=== PATIENT | female | born 1965 | race Caucasian/White ===

== ENCOUNTER 2025-07-09 15:12 | Emergency (ER) | payer MEDICARE, SELFPAY ==
[2025-07-09 15:26] VITALS: BP 138/83; PULSE 95; RESP 16; TEMP 36.5; O2SAT 100
--- NOTE | 2025-07-09 15:45 | ED_ITS ---
HPI - Wound/Laceration General Chief Complaint: Wound/Laceration Stated Complaint: Multiple complaints Time Seen by Provider: 07/09/25 15:34 Source: patient and RN notes reviewed Mode of arrival: ambulatory Limitations: no limitations History of Present Illness HPI narrative: 60-year-old female patient presents today complaining of a wound to the medial right upper arm x5 days. She believes she may have been bitten by a brown recluse. She has been cleaning the area with betadine and applying bacitracin. Reports discomfort only with touching the area. Related Data Home Medications ?Medication ?Instructions ?Recorded ?Confirmed ?Last Taken ?Type alprazolam 2 mg tablet mg 07/09/25 Unknown History methadone 07/09/25 Unknown History sertraline 100 mg tablet mg 07/09/25 Unknown History Allergies Allergy/AdvReac Type Severity Reaction Status Date / Time ketorolac Allergy Intermediate Unknown Verified 07/09/25 15:33 codeine Allergy Unknown hurts Verified 07/09/25 15:33 stomach PMFSH Family History Family History Father Family history of diabetes mellitus in first degree relative Social History Social History Alcohol intake: never Comments At time of signature, I have reviewed and agree with nursing past medical, surgical, social and family history unless otherwise noted. Please see nursing chart for further information. There is no relevant family history pertinent to the presenting complaint Exam Narrative: GENERAL: Well-appearing, well-nourished, and in no acute distress. HEAD: Normocephalic, atraumatic. EYES: EOMI. No redness or drainage. Conjunctivae normal. ENT: Mucous membranes pink and moist. NECK: Normal AROM. CHEST: No respiratory distress. Clear to auscultation. HEART: Regular rate and rhythm. No murmur appreciated. EXTREMITIES: Normal range of motion. No edema. SKIN: Warm, dry. Capillary refill normal. Normal skin turgor. 1x1cm scab to the left medial upper arm with some tiny papules to the proximal edge. Mildly tender palpation. No edema, fluctuance, induration noted. NEURO: No focal deficits. Alert and oriented x3. Gait steady. PSYCH: Normal affect. No signs of depression or anxiety. Course Course Level of Care: Express Care Visit Vital Signs Vital signs: Vital Signs Temperature 97.7 F 07/09/25 15:26 Pulse Rate 95 07/09/25 15:26 Respiratory Rate 16 07/09/25 15:26 Blood Pressure 138/83 07/09/25 15:26 Pulse Oximetry 100 07/09/25 15:26 Oxygen Delivery Room Air 07/09/25 15:26 Temperature 97.7 F 07/09/25 15:26 Pulse Rate 95 07/09/25 15:26 Respiratory Rate 16 07/09/25 15:26 Blood Pressure 138/83 07/09/25 15:26 Pulse Oximetry 100 07/09/25 15:26 Oxygen Delivery Room Air 07/09/25 15:26 Reviewed MDM MDM Narrative Medical decision making narrative: 60-year-old female patient presents today complaining of a wound to the medial right upper arm x5 days. She believes she may have been bitten by a brown recluse. She has been cleaning the area with betadine and applying bacitracin. Reports discomfort only with touching the area. Upon exam,1x1cm scab to the left medial upper arm with some tiny papules to the proximal edge. Mildly tender palpation. No edema, fluctuance, induration noted. Scab seems to be healing fine, but etiology unclear. The tiny papules could be due to the bacitracin or Betadine, or also the Band-Aid that she was applying. Instructed patient that since the area scabbed over she no longer needs to cover. She can also stop applying the bacitracin and Betadine. This may help resolve the papules. This area does not seem infected and will likely heal up on its own. Patient requesting antibiotics and became very angry and agitated when she was told she would not be receiving a prescription. She left without signing her discharge iinstructions. Differential Diagnosis Differential Diagnosis: abscess, cellulitis, folliculits Critical Care Time Critical Care Time Critical Care Time: No Discharge Plan Discharge Clinical Impression: Wound of left upper extremity Patient Disposition: Home Condition: Stable Additional Instructions: Your arm wound should heal up on its own. At this time it does not appear infected in you do not need antibiotics. Follow-up with PCP for any additional concerns. Please call the physician liaison number at [facility] to find a PCP at [phone]. Patient Language: Uzbek Prescriptions: No Action sertraline 100 mg tablet alprazolam 2 mg tablet methadone Follow-up/Referrals: PHYSICIAN,PRETZEL TWISTING MACHINE OPERATOR [Primary Care Provider, Internal Medicine] Time of Disposition: 15:45
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
--- OUTSIDE RECORDS SUMMARY | 2025-07-09 17:48 | XMS_ITS | Clinical Summary ---
Author Organization [facility] Address [facility] [place] [address] Care Team Providers Care Civil Celebrant Name Role Phone Unavailable Primary Care Provider Unavailabl e Social History Tobacco Use Types Packs/Day Years Used Date Smoking Tobacco: Never Assessed Comments Unknown Sex and Gender Information Value Date Recorded Sex Assigned at Not on file Legal Sex Female 7:44 PM CDT Gender Identity Not on file Sexual Orientation Not on file Plan of Treatment Health Maintenance Due Date Last Done Comments Cervical Cancer Screening Pa p Smear (Age 30 to 64) Every 3 Years 1965 Colorectal Cancer Screening Colonoscopy (10 Years) 1965 Annual Physical 1968 Hepatitis C 1983 Cervical Cancer Screening Pa p with HPV Testing (Age 30 to 64) Every 5 Years 1995 Cervical Cancer Screening with HPV 1995 Mammogram Screening 2005 Pneumococcal Vaccine: 50+ Ye ars (1 of 1 - PCV) 2015 Zoster Vaccines (1 of 2) 2015 DTaP, Tdap and Td Vaccines ( 2 - Td or Tdap) 03/23/2020 03/23/2010 COVID-19 Vaccine ( - 2024-2 6 season) 2025 Influenza Adult (#1) 2025 RSV Immunization or 60+ Years (1 - 1-dose 75+ series) 2040 Hepatitis A Vaccines Aged Out No long er eligible based on patient's age to complete this topic Meningococcal B Vaccine Aged Out No l onger eligible based on patient's age to complete this topic Meningococcal Vaccine Aged Out No patti marry eligible based on patient's age to complete this topic RSV Immunizations Under 20 Months Aged Out No longer eligible based on patient's age to complete this topic
--- OUTSIDE RECORDS SUMMARY | 2025-07-09 17:48 | XMS_ITS | Clinical Summary ---
Author Organization [facility] Address [address] [place] [address] Care Team Providers Care Hvac Maintenance Technician Name Role Phone Unavailable Primary Care Provider Unavailabl e Medications ALPRAZolam (XANAX) 2 mg tablet TAKE ONE TABLET BY MOUTH FOUR TIMES A DAY NEEDED 120 Tablet 1 02/28/2024 9:42 AM CDT 01/30/2024 Active sertraline (ZOLOFT) 100 mg tablet TAKE ONE TABLET BY MOUTH EVERY DAY 90 Tablet 2 11/07/2024 12:46 PM CDT 11/06/2024 Active ALPRAZolam (XANAX) 2 mg tablet Take 1 Tablet (2 mg) by mouth 4 times daily as needed. 120 Tablet 1 11/07/2024 12:46 PM CDT 11/06/2024 Active Encounters Date Type Department Care Team Description 07/01/2025 External Device Data [facility] Provider, Abstract 06/10/2025 External Device Data [facility] Provider, Abstract 05/21/2025 External Device Data [facility] Provider, Abstract 05/21/2025 External Device Data [facility] Provider, Abstract from Last 3 Months Social History Tobacco Use Types Packs/Day Years Used Date Smoking Tobacco: Never Assessed Comments Unknown Sex and Gender Information Value Date Recorded Sex Assigned at Not on file Legal Sex Female 3:09 PM CDT Gender Identity Not on file Sexual Orientation Not on file Plan of Treatment Health Maintenance Due Date Last Done Comments DTAP/TDAP/TD VACCINES (1 - Tdap) 1984 HPV/Cotest (21-29) 1986 CERVICAL CANCER SCREENING 1995 HPV/Cotest (30-65) 1995 PAP SMEAR 1995 BREAST CANCER SCREENING 2005 COLORECTAL SCREENING 2010 Colorectal Cancer Screening 2010 FIT-DNA Q 3 years 2010 FIT/FOBT Q 1 year 2010 Flex Sig/CT Colonography Q 5 years 2010 ZOSTER VACCINE (1 of 2) 2015 INFLUENZA VACCINE (#1) 2025 RSV VACCINE (60+ or ) (1 - 1-dose 75+ series) 2040 HEPATITIS B VACCINES Aged Out No long er eligible based on patient's age to complete this topic Insurance RX [employer] RX Member Subscriber Plan / Payer (Ef fective 2024-Present) Name:Mirlande Wise Relation to Subscriber:Self Name:Mirlande Wise Subscriber ID:Not on file Payer ID:Not on file Group ID:[facility] Type:RX Medicare Part D Address: [address]
--- OUTSIDE RECORDS SUMMARY | 2025-07-09 17:48 | XMS_ITS | Clinical Summary ---
Author Organization [facility] Address [address] [place] [address] Care Team Providers Care Bone Char Operator Name Role Phone Elizabeth Kumar MD Unavailable [phone] Jose E Hyatt MD Unavailable Arturo robles Source Comments [facility],non-owned Affiliates and Associated Physician Practices is amultiple site organization consisting of ambulatory clinics and hospital sitesin [place], [place], [place] and [place]. This disclosure is being madepursuant to the Care Everywhere program and may not contain all information available regarding this patient. Last updated 18.[facility] Taskforce Allergies No known active allergies Medications * Be aware that medications may not be up to date on this document. Alwaysverify current medications with the patient. fentaNYL (DURAGESIC) 75 MCG/HR patch 4 Active HYDROmorphone (DILAUDID) 4 MG tablet 4 Active ALPRAZolam (XANAX) 2 MG tablet 4 Active dextroamphetami ne (DEXEDRINE) 10 MG tablet Take 10 mg by mouth 2 times daily. Active gabapentin (NEURONTIN) 300 MG capsuleIndicati ons:Insomnia Take 1-2 Caps by mouth at bedtime. 60 Cap 6 4 Active Cholecalciferol (VITAMIN D) 1000 UNITS capsuleIndicati ons:Back pain Take 1 Cap by mouth once daily. 4 Active Magnesium Oxide (URBINA) 500 MG (LAX) TABSIndications :Constipation Take 2 Tabs by mouth once daily. 4 Active senna (SENOKOT) 8.6 MG tabletIndicatio ns:Constipation Take 1 Tab by mouth at bedtime. 4 Active meloxicam (MOBIC) 7.5 MG tabletIndicatio ns:Back pain Take 1-2 Tabs by mouth once daily. 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 2013 Back pain 05/22/2014 TMJ (temporomandibular joint disorder) 4 Overview (05/22/2014): Chronic pain s/p failed surgery Family History Medical History Relation Name Comments Arthritis - Osteo Brother Arthritis - Osteo Father Asthma Father Diabetes Father Hypertension Father Arthritis - Osteo Maternal Grandfather Arthritis - Osteo Maternal Grandmother Arthritis - Osteo Mother Arthritis - Osteo Paternal Grandfather Arthritis - Osteo Paternal Grandmother Diabetes Paternal Grandmother Arthritis - Osteo Sister Relation Name Status Comments Brother Father Maternal Grandfather Maternal Grandmother Mother Paternal Grandfather Paternal Grandmother Sister Social History Tobacco Use Types Packs/Day Years Used Date Smoking Tobacco: Every Day Cigarettes Smokeless Tobacco: Never Comments:e cig daily Alcohol Use Standard Drinks/Week Comments No 0 (1 standard drink = 0.6 oz pur e alcohol) Comments Unknown Sex and Gender Information Value Date Recorded Sex Assigned at Not on file Legal Sex Female 1:55 PM CDT Gender Identity Not on file Sexual Orientation Not on file Occupation Industry Job Start Date Job End Date Disabled Not on file Not on file Not on file Last Filed Vital Signs Vital Sign Reading Time Taken Comments Blood Pressure 102/76 05/22/2014 11:03 AM CDT Pulse 75 05/22/2014 11:03 AM CDT Temperature - - Respiratory Rate - - Oxygen Saturation - - Inhaled Oxygen Concentration - - Weight 59.1 kg (130 lb 3.2 oz) 05/22/2014 11:03 AM CDT Height 165.1 cm (5' 5) 05/22/2014 11:03 AM CDT Body Mass Index 21.67 05/22/2014 11:03 AM CDT Plan of Treatment Health Maintenance Due Date Last Done Comments COLOGUARD (AGES 45-75) - COL ON CA SCREENING 1965 COLON MONITORING 1965 COLONOSCOPY - COLON CA SCREENING 1965 CT COLONOGRAPHY - COLON CA SCREENING 1965 Colorectal Cancer Screening 1965 FIT - COLON CA SCREENING 1965 FLEX SIG - COLON CA SCREENING 1965 LIPID TESTING 1965 MAMMOGRAM 1965 HIV SCREENING 1980 HEPATITIS C SCREENING 04/13/1983 DTAP/TDAP/TD VACCINES (1 - Tdap) 1984 PNEUMOCOCCAL VACCINE 50+ (1 of 1 - PCV) 2015 ZOSTER VACCINE (1 of 2) 2015 DEPRESSION SCREENING 07/24/2024 COVID-19 VACCINE (1 - 2024-2 6 season) 2025 INFLUENZA VACCINE (#1) 2025 Respiratory Syncytial Virus (RSV) Vaccine Pt: or over 60 yrs (1 - 1-dose 75+ series) 2040 HEPATITIS B VACCINE Aged Out No longe r eligible based on patient's age to complete this topic HIB VACCINE Aged Out No longer eligi ble based on patient's age to complete this topic HPV VACCINE Aged Out No longer eligi ble based on patient's age to complete this topic MENINGOCOCCAL (Group B) VACC INE SHARED DECISION-MAKING Aged Out No longer eligibl e based on patient's age to complete this topic MENINGOCOCCAL GROUPS A/C/Y/W VACCINE Aged Out No longer eligible b ased on patient's age to complete this topic Insurance MEDICARE Care Teams Bone Char Operator Relationship Specialty Start Date End Date Elizabeth Kumar MD Physical Medicine and Rehabilitation 05/22/14 Jose E Hyatt MD Psychiatry 05/22/14
--- OUTSIDE RECORDS SUMMARY | 2025-07-09 17:48 | XMS_ITS | Clinical Summary ---
Author Organization [facility] Address [address] [place] [address] Care Team Providers Care Convention Services Director Name Role Phone Juan Jose Fairbanks MD Unavailable [phone] Miscellaneous, Not In File Primary Care Provider Unavailable Allergies Active Allergy Reactions Criticality Noted Date Comments Codeine Nausea only Low 08/23/[address] (Protonix) 40 mg EC tabletIndicatio ns:Treatment of Non-Bleeding Gastric Disorder Take 1 tablet (40 mg total) by mouth daily 90 tablet 1 Active dextroamphetami ne-amphetamine (AdderalL) 10 mg tablet Take 20 mg by mouth daily as needed Active ALPRAZolam (XANAX) 2 mg tablet Take 2 mg by mouth 4 (four) times a day as needed 4 Active methadone (Dolophine) 10 mg tablet Take 40 mg by mouth bander operator before breakfast Active oxyCODONE-aceta minophen (PERCOCET) 10-325 mg per tablet Take 1 tablet by mouth every 6 (six) hours as needed 9 Active sertraline (ZOLOFT) 100 mg tablet 1 Active cyclobenzaprine (FLEXERIL) 10 mg tablet Take 1 tablet (10 mg total) by mouth 2 (two) times a day as needed for muscle spasms 20 tablet 4 Active Active Problems Problem Noted Date Diagnosed Date Abdominal pain 08/28/2020 Chronic pain syndrome 07/10/2013 Overview (10/26/2016): Chronic pain syndrome Mixed anxiety depressive disorder 07/10/2013 Overview (10/27/2016): Depression with anxiety Trigeminal neuralgia 07/10/2013 Overview (10/27/2016): Trigeminal neuralgia syndrome Osteoarthritis of spine 07/10/2013 Overview (10/27/2016): Osteoarthritis of spine Temporomandibular betyu-sxhm-aovtdxcvhjg syndrom e 07/10/2013 Overview (10/28/2016): TMJ syndrome Surgical History Surgery Date Site/Laterality Comments OTHER SURGICAL HISTORY 07/24/2011 - 07/23/2012 Fibroids: hysterectomy: PATRICK/BSO OTHER SURGICAL HISTORY 07/24/2002 - 07/23/2003 Left tooth extraction, lymph node dissection LAPAROSCOPIC NEPHRECTOMY Right APPENDECTOMY TEMPOROMANDIBULAR JOINT ARTHROPLASTY Left Medical History Medical History Date Comments Hx Other Medical Fibroids Anemia Chronic constipation Colon polyp Diverticulosis GERD (gastroesophageal reflux disease) Chronic kidney disease renal jovan l carcinoma Lupus Depression ADHD (attention deficit hyperactivity disorder) Cancer (HCC) renal cell Family History Medical History Relation Name Comments Hypertension Father Hypertension; Cancer Maternal Grandfather Cancer, unknown; Hypertension Mother Hypertension; Relation Name Status Comments Father Maternal Grandfather Mother Social History Tobacco Use Types Packs/Day Years Used Date Smoking Tobacco: Former Smokeless Tobacco: Never Comments:5 cigarettes a day Alcohol Use Standard Drinks/Week Comments Yes 0 (1 standard drink = 0.6 oz pur e alcohol) socially Personal Safety Answer Date Recorded Have you ever been in or are you currently in a harmful physical or emotional relationship or is someone making you feel afraid or unsafe? Denies 03/13/2024 Comments No Sex and Gender Information Value Date Recorded Sex Assigned at Not on file Legal Sex Female 1:48 AM CLOTHING MANAGER Gender Identity Not on file Sexual Orientation Not on file Last Filed Vital Signs Vital Sign Reading Time Taken Comments Blood Pressure 110/76 03/13/2024 8:00 PM CDT Pulse 60 03/13/2024 8:05 PM CDT Temperature 36.5 C (97.7 F) 03/13/2024 3:39 PM CDT Respiratory Rate 21 03/13/2024 3:39 PM CDT Oxygen Saturation 100% 03/13/2024 8:05 PM CDT Inhaled Oxygen Concentration - - Weight 54.4 kg (120 lb) 03/13/2024 11:29 AM CDT Height 167.6 cm (5' 6) 03/13/2024 11:29 AM CDT Body Mass Index 19.37 03/13/2024 11:29 AM CDT Plan of Treatment Health Maintenance Due Date Last Done Comments Breast Cancer Screening-Mammogram 1965 Colon Cancer Screening-Colonoscopy 1965 Depression Screening 1965 Hepatitis B Screening 1983 Regular Well Visit/Exam 18-64 1983 Zoster Vaccine (1 of 2) 2015 DTaP/Tdap/Td Vaccine (2 - Td or Tdap) 03/23/2020 03/23/2010 Covid-19 Vaccine (3 - 2024-2 6 season) 2025 02/19/2021, 01/22/2021 Influenza Vaccine (#1) 2025 Hepatitis C Screening Completed 06/28/2013 , 02/04/2013 Pneumococcal vaccine <65 Aged Out No longer eligible based on patient's age to complete this topic Medical Devices Explanted Type Area City Manager Device Identifier Shelf Expiration Date Model / Serial / Lot [employer] [id number] Flexi-Stent 7fr 3cm Small Pigtail Flexible .035in Stent - [id number] Implanted:Qty : 1 on 08/28/2020 by Tulio Palacios MD at [facility] Explanted:Qty : 1 on 08/31/2020 by Tulio Palacios MD at [facility] Stent N/A: Pancreas [employer] 04/22/2024 [id number] / / [id number] Conmed Brenda [id number] [place] Viabil 10mm 8.5fr 6cm 200cm Fully Covered Self Expand Pull - [id number] - [id number] Implanted:Qty : 1 on 08/28/2020 by Tulio Palacios MD at [facility] Explanted:Qty : 1 on 08/31/2020 by Tulio Palacios MD at [facility] Stent N/A: Bile Duct [employer] Brenda 06/10/2023 [id number] / [id number] / Procedures Procedure Name Priority Date/Time Associated Diagnosis Comments SERUM HEPATITIS PANEL Routine 06/28/2013 8:20 PM CLOTHING MANAGER from Last 3 Months or Most Recently Relevant to Health Maintenance Results * Serum Hepatitis panel (06/28/2013 8:20 PM CLOTHING MANAGER) HBV surface ag NONREAC NONREAC HISTO RICAL RESULTS HAV ab, IgM NONREAC NONREAC HISTORIC AL RESULTS Comment: Early acute infection (within the prior 2 weeks) is not ruled out by this test. HBV core ab, IgM NONREAC NONREAC HISTORICAL RESULTS HCV ab NONREAC NONREAC HISTORICAL RESULTS Comment: EARLY ACUTE INFECTION (OCCURING DURING THE PRIOR 8-9 WEEKS) IS NOT RULED OUT BY THIS TEST. Serum 06/28/2013 8:20 PM CLOTHING MANAGER Cata Michelle LAB BLOOD ORDERABLES Final Resul t HISTORICAL RESULTS from Last 3 Months or Most Recently Relevant to Health Maintenance Insurance [facility] H[facility] REF [facility] H[facility] REF [facility] MEDICARE ADVANTAGE Advance Directives For more information, please contact: [phone] * Full Code (Latest Code Status on File) Date Activated Date Inactivated Comments 08/29/2020 6:16 PM 09/01/2020 5:25 PM * Full Code Date Activated Date Inactivated Comments 08/28/2020 10:51 AM 08/29/2020 6:16 PM * Full Code Date Activated Date Inactivated Comments 08/28/2020 10:51 AM 08/28/2020 10:51 AM Care Teams Convention Services Director Relationship Specialty Start Date End Date Miscellaneous, Not In File PCP - General 03/13/24 Juan Jose Fairbanks MD Surgeon General Surgery 08/31/20
--- OUTSIDE RECORDS SUMMARY | 2025-07-09 17:48 | XMS_ITS | Patient Health Record ---
Author Organization [facility] Address [address] [address] [place] [address] Care Team Providers Care Child'S Nurse Name Role Phone Sherice MARQUEZ, Ta Primary Care Provider Rehan CASTAÑEDA PA-C, MACK Unavailable Yuniel Alonzo DO Unavailable Unavailable Reason For Referral No Information Medications Medication SIG (Take, Route, Frequency, Duration) Notes Start Date End Date Status ALPRAZolam 2 MG 1 tablet Orally TID PRN Active Zoloft 100 MG 1 tablet Orally Once a day Active Pantoprazole Sodium 40 MG 1 tablet Orally BID Active Adderall PRN Active Methadone HCl 10 MG 1 tablet Orally QID Active Social History Tobacco Use: Social History Observation Description Date Details (start date - stop date) Current Smoker NA - NA Tobacco Use/Smoking Question Answer Notes Are you a current smoker How often do you smoke cigarettes? every day How many cigarettes a day do you smoke? 6-10 Problems Problem Type SNOMED Code ICD Code Onset Dates Problem Status W/U Status Risk Notes Problem Cholelithiasis without obstruction (62490158) Calculus of gallbladder w/o cholecystitis w/o obstruction (K80.20) Active confirmed Plan Of Treatment No Information Insurance Providers Payer Name Payer Address Payer Phone Subscriber Number Group Number Insured Name Patient Relationship to Insured Coverage Start Date Coverage End Date [facility] [address] [place], [place] [id number] Mirlande Wise Self - patient is the insured Medical (General) History Medical History History ICD Code Lupus Right renal cell carcinoma Cholelithiasis Chronic pain syndrome on methadone, foll owed by pain management Anxiety, arthritis, depressi on, fibromyalgia, GERD, hiatal hernia, migraines, TMJ, trigeminal neuralgia Surgical History Surgery Date(Month/Year) Hysterectomy, lap right nephrectomy, negra endectomy
== END 2025-07-09 15:51 | disposition home or self-care (01) ==
PROVIDERS: Emergency Provider Nurse Practitioner
DX: S41.101A Unspecified open wound of right upper arm, initial encounter (principal); X58.XXXA Exposure to other specified factors, initial encounter; M32.9 Systemic lupus erythematosus, unspecified; Z85.9 Personal history of malignant neoplasm, unspecified
CPT/HCPCS: 99211; G0463